=== PATIENT | male | born 2000 | race Caucasian/White ===

== ENCOUNTER 2021-01-18 12:33 | Emergency (ER) | payer OTHER ==
[2021-01-18 13:00] VITALS: BP 125/78; PULSE 91; RESP 16; TEMP 98.1
[2021-01-18] MEDS ORDERED: IBUPROFEN 600 MG STARTER PACK 4 TAB BTL PO STA (14:23)
[2021-01-18] MEDS ORDERED: DEXAMETHASONE SOD PHOSPHATE 10 MG/ML 1 ML VIAL IM STA (14:23)
--- NOTE | 2021-01-18 14:24 | ED ---
General Adult HPI - General Chief complaint: ENT Stated complaint: Sore Throat Time Seen by Provider: 01/18/21 14:11 Source: patient Mode of arrival: ambulatory Limitations: no limitations - History of Present Illness Initial comments: 20-year-old male patient presents to the emergency department today for evaluation of sore throat. States symptoms started yesterday. States he has increased pain with swallowing. Denies any unilateral pain states is equal on both sides. Denies any fever or chills. Denies any nasal congestion or drainage. Denies any cough. Denies any sick contacts. States he has had strep before this feels similar. Denies taking any medications for his symptoms. - Related Data Previous Rx's Medication Instructions Recorded Ibuprofen [Motrin] 600 mg PO Q8HR PRN #30 tab 01/18/21 Allergies Allergy/AdvReac Type Severity Reaction Status Date / Time No Known Allergies Allergy Verified 01/18/21 12:59 Review of Systems ROS Statement: Those systems with pertinent positive or pertinent negative responses have been documented in the HPI. ROS Other: All systems not noted in ROS Statement are negative. Past Medical History Past Medical History: No Reported History History of Any Multi-Drug Resistant Organisms: None Reported Past Surgical History: No Surgical Hx Reported Past Psychological History: No Psychological Hx Reported Smoking Status: Never smoker Past Alcohol Use History: None Reported Past Drug Use History: None Reported General Exam Limitations: no limitations General appearance: alert, in no apparent distress, other (This is a well- developed, well-nourished adult male patient in no acute distress. Vital signs upon presentation are temperature 98.1F, pulse 91, respiration 16, blood pressure 125/78, pulse ox 98% on room air.) Eye exam: Present: normal appearance, PERRL, EOMI. Absent: scleral icterus, conjunctival injection, periorbital swelling ENT exam: Present: mucous membranes moist, TM's normal bilaterally. Absent: normal oropharynx (Pharyngeal erythema, tonsillar exudate. Tonsils are symmetric, uvula is midline.) Neck exam: Present: normal inspection. Absent: tenderness, meningismus, lymphadenopathy Respiratory exam: Present: normal lung sounds bilaterally. Absent: respiratory distress, wheezes, rales, rhonchi, stridor Cardiovascular Exam: Present: regular rate, normal rhythm, normal heart sounds. Absent: systolic murmur, diastolic murmur, rubs, gallop, clicks GI/Abdominal exam: Present: soft, normal bowel sounds. Absent: distended, tenderness, guarding, rebound, rigid Neurological exam: Present: alert, oriented X3, CN II-XII intact Psychiatric exam: Present: normal affect, normal mood Skin exam: Present: warm, dry, intact, normal color. Absent: rash Course Vital Signs 01/18/21 12:57 Temperature 98.1 F Pulse Rate 91 Respiratory 16 Rate Blood Pressure 125/78 O2 Sat by Pulse 98 Oximetry Medical Decision Making - Medical Decision Making 20-year-old male patient presents to the emergency department today for evaluation of sore throat. Physical examination did reveal pharyngeal erythema with tonsillar hypertrophy. There is some mild exudate. No lymphadenopathy. Negative fever. He tested negative for strep. We did give an IM dose of Decadron. He'll be given ibuprofen. He is instructed to follow-up with his primary care physician for recheck in 1-2 days. He is awaiting culture results. Return parameters were discussed in detail. He verbalizes understanding and agrees with this plan. My attending is Dr. Hemphill. - Lab Data Lab Results 01/18/21 Range/Units 13:00 Group A Strep Rapid Negative (Negative) Disposition Clinical Impression: Pharyngitis Disposition: HOME SELF-CARE Condition: Good Instructions (If sedation given, give patient instructions): Pharyngitis (ED) Additional Instructions: Continue ibuprofen, alternate with Tylenol. Increase fluids. Follow-up with primary care physician for recheck in 1-2 days. Return to the emergency department for any new, worsening, or concerning symptoms. Prescriptions: Ibuprofen [Motrin] 600 mg PO Q8HR PRN #30 tab PRN Reason: Pain Is patient prescribed a controlled substance at d/c from ED?: No Referrals: None,Stated [REFERRING] - 1-2 days Time of Disposition: 14:24
== END 2021-01-18 14:33 | disposition home or self-care (01) ==
LOC: EC 12:33
DX: J02.9 Acute pharyngitis, unspecified (principal)
CPT/HCPCS: 87081; 87430; 99283; 96372; J1100

== ENCOUNTER 2021-01-23 10:39 | Emergency (ER) | payer OTHER ==
[2021-01-23 10:43] VITALS: RESP 18
--- NOTE | 2021-01-23 11:14 | ED ---
ENT HPI - General Chief complaint: ENT Stated complaint: revisit - sore throat Time Seen by Provider: 01/23/21 10:43 Source: patient Mode of arrival: ambulatory Limitations: no limitations - History of Present Illness Initial comments: 20-year-old male presenting to the emergency department today for chief complaint of sore throat. Patient states he is recently here tested for strep pharyngitis he states that the strep was negative as well as a culture. Patient states he continues to have a sore throat. He states it was a little bit better after the steroid he was given but has continued to worsen. He denies any unilateral pain he denies any difficulty breathing swallowing. Patient denies any fevers he denies any rashes. Patient has noticeable complaints he denies a concerns for sexual transmitted diseases secondary to oral sex. Remaining ROS (-). Upon arrival pt appears well nontoxic in no acute distress. - Related Data Previous Rx's Medication Instructions Recorded Ibuprofen [Motrin] 600 mg PO Q8HR PRN #30 tab 01/18/21 Amoxicillin 500 mg PO Q8H 7 Days #21 capsule 01/23/21 Allergies Allergy/AdvReac Type Severity Reaction Status Date / Time No Known Allergies Allergy Verified 01/23/21 11:56 Review of Systems ROS Statement: Those systems with pertinent positive or pertinent negative responses have been documented in the HPI. ROS Other: All systems not noted in ROS Statement are negative. Past Medical History Past Medical History: No Reported History History of Any Multi-Drug Resistant Organisms: None Reported Past Surgical History: No Surgical Hx Reported Past Psychological History: No Psychological Hx Reported Smoking Status: Never smoker Past Alcohol Use History: None Reported Past Drug Use History: None Reported General Exam - General Exam Comments Initial Comments: General: The patient is awake and alert, in no distress, and does not appear acutely ill. Eye: Pupils are equal, round and reactive to light, extra-ocular movements are intact. No nystagmus. There is normal conjunctiva bilaterally. No signs of icterus. Ears, nose, mouth and throat: There are moist mucous membranes and no oral lesions. Bilateral tonsillar enlargement, equal uvula midline. There is some exudate on the uvula. There is no tripoding drooling stridor no peritonsillar fullness. Neck: The neck is supple, there is no tenderness or JVD. Cardiovascular: There is a regular rate and rhythm. No murmur, rub or gallop is appreciated. Respiratory: Lungs are clear to auscultation, respirations are non-labored, breath sounds are equal. No wheezes, stridor, rales, or rhonchi. Musculoskeletal: Normal ROM, no tenderness. Strength 5/5. Sensation intact. radial pulses equal bilaterally 2+. Neurological: A&O x 3. CN II-XII intact grossly, There are no obvious motor or sensory deficits. Coordination appears grossly intact. Speech is normal. Skin: Skin is warm and dry and no rashes or lesions are noted. Psychiatric: Cooperative, appropriate mood & affect, normal judgment. Limitations: no limitations Course Vital Signs 01/23/21 01/23/21 01/23/21 10:41 11:47 12:42 Temperature 98.9 F 98.1 F 98.1 F Pulse Rate 111 H 84 84 Respiratory 18 18 18 Rate Blood Pressure 138/83 102/65 102/65 O2 Sat by Pulse 97 97 97 Oximetry Medical Decision Making - Medical Decision Making 20yo male presenting for cc of sore throat. no signs of physical examination or history concerning for peritonsillar abscess or deep space infection. Patient had a bowel negative. Strep testing is negative however there is exudates. Significant lateral tonsillar enlargement that the patient is on oral antibiotics and he is to follow-up with ENT or return for worsening symptoms patient is agreeable to care plan discharge this time Dr. Hemphill agreeable to care. - Lab Data Lab Results 01/23/21 01/23/21 Range/Units 11:11 11:11 Heterophile Antibody Negative (Negative) Group A Strep Rapid Negative (Negative) Disposition Clinical Impression: Pharyngitis Disposition: HOME SELF-CARE Instructions (If sedation given, give patient instructions): Pharyngitis (ED) Additional Instructions: Please use medication as discussed. Please follow-up with family doctor in the next 2 days. Please return to emergency room if the symptoms increase or worsen or for any other concerns. Prescriptions: Amoxicillin 500 mg PO Q8H 7 Days #21 capsule Is patient prescribed a controlled substance at d/c from ED?: No Referrals: Jonathan Yousif MD [Primary Care Provider] - 1-2 days Real Stewart MD [STAFF PHYSICIAN] - 1-2 days Time of Disposition: 12:05
[2021-01-23 11:48] VITALS: BP 102/65; PULSE 84; TEMP 98.1
== END 2021-01-23 12:43 | disposition home or self-care (01) ==
LOC: EC 10:39
DX: J02.9 Acute pharyngitis, unspecified (principal)
CPT/HCPCS: 36415; 86308; 87081; 87430; 99283